=== PATIENT | female | born 1980 | race Caucasian/White ===

== ENCOUNTER 2016-11-05 01:20 | Emergency (ER) | payer OTHER ==
[~2016-11-05] VITALS: Ht 154.9 cm; Wt 62.1 kg
[2016-11-05 01:20] VITALS: BP 137/76; PULSE 98; RESP 16; TEMP 98.5; O2SAT 99
[2016-11-05 01:49] VITALS: BP 122/64; PULSE 93; RESP 20; TEMP 98.2; O2SAT 99
== END 2016-11-05 01:49 | disposition home or self-care (01) ==
LOC: SED 01:20
DX: Z02.89 Encounter for other administrative examinations (principal)
CPT/HCPCS: 99283